=== PATIENT | female | born 1965 | race Two or more races ===

== ENCOUNTER 2023-04-26 14:16 | Emergency (ER) | payer OTHER ==
[~2023-04-26] VITALS: Ht 160 cm; Wt 62.1 kg
== END 2023-04-26 17:06 | disposition home or self-care (01) ==
LOC: ER 14:16
DX: S61.451A Open bite of right hand, initial encounter (principal); W55.01XA Bitten by cat, initial encounter; Y93.89 Activity, other specified; Y92.89 Other specified places as the place of occurrence of the external cause; Y99.8 Other external cause status

== ENCOUNTER 2024-11-02 20:50 | Emergency (ER) | payer OTHER ==
[~2024-11-02] VITALS: Ht 162.6 cm; Wt 61.2 kg
[2024-11-03] MEDS ORDERED: CLINDAMYCIN PHOSPHATE 150 MG/ML (600mg) IM STA (06:02)
== END 2024-11-03 06:14 | disposition home or self-care (01) ==
LOC: ER 20:52
DX: S60.571A Other superficial bite of hand of right hand, initial encounter (principal); W55.01XA Bitten by cat, initial encounter; Y93.89 Activity, other specified; Y92.018 Other place in single-family (private) house as the place of occurrence of the external cause